=== PATIENT | female | born 1970 | race Caucasian/White ===

== ENCOUNTER → 2018-09-05 | Outpatient (REF) ==
--- NOTE | 2018-09-06 02:19 | REP ---
Clinical: Pain and disability. Technique: AP, lateral, coned-down views of the lumbosacral spine. Findings: Alignment and lordosis maintained. No acute fracture / compression injury or subluxation. Advanced degenerative disc osteophyte complex at L5-S1 include endplate sclerosis, disc space narrowing, anterior osteophyte and hypertrophic facet changes. Mild/moderate degenerative changes at L3-4 and L4-5 with endplate sclerosis, early spurring, and and mild hypertrophic facet change. Impression: Focal advanced degenerative changes at L5-S1. Mild degenerative change at L3-4 and L4-5. Electronically Signed by Donald Gill MD 09/06/2018 02:10 A
--- NOTE | 2018-09-06 02:26 | REP ---
Clinical: Right shoulder pain . Technique: Internal rotation, external rotation, and Y view. Findings: No acute fracture or dislocation. The acromioclavicular and glenohumeral joints are intact. No periarticular calcifications or degenerative changes are appreciated. Sub acromial space is normal. Surrounding soft tissues are unremarkable. Impression: Normal age-appropriate right shoulder radiographs. Electronically Signed by Donald Gill MD 09/06/2018 02:17 A
== END ==
LOC: M SMT 14:48
PROVIDERS: ATTEND Internal Medicine
DX: Z00.00 Encounter for general adult medical examination without abnormal findings (principal)